=== PATIENT | female | born 1960 | race Caucasian/White ===

== ENCOUNTER 2020-12-06 11:25 | Day surgery (SDC) | payer OTHER ==
[2020-12-06] MEDS ORDERED: Decadron 4 MG INJ IV ONE (11:26)
[2020-12-06] MEDS ORDERED: LIDOCAINE HCL 2% 100 MG/5 ML IJ ONE (11:26)
[2020-12-06] MEDS ORDERED: DIPRIVAN 200 MG/20 ML IV ONE (12:38)
[2020-12-06] MEDS ORDERED: Ketamine HCl 50 MG/ML ONE (12:38)
[2020-12-06] MEDS ORDERED: Lactated Ringers 1,000 ML IV ONE (14:36)
--- NOTE | 2020-12-06 15:20 | XRAY ---
Indication: Left C3-C5 MBB. Intraoperative fluoroscopy provided for 16 seconds. 2 digital spot images submitted for interpretation demonstrate posterior needle tips projecting over the expected left C3-C5 nerve roots. Correlate with intraoperative findings/report.
--- NOTE | 2020-12-06 16:22 | XRAY ---
16 seconds of fluoroscopy was used in surgery for a left C3-C4 and C4-C5 MBB.
== END 2020-12-06 13:56 | disposition home or self-care (01) ==
LOC: SDC-PAIN 11:25
PROVIDERS: ATTEND Psychiatry & Neurology Pain Medicine
DX: M47.812 Spondylosis without myelopathy or radiculopathy, cervical region (principal); M79.7 Fibromyalgia; F41.8 Other specified anxiety disorders; Z79.899 Other long term (current) drug therapy
CPT/HCPCS: 64490; 64491; 72020; 77002; J1100; J2704

== ENCOUNTER 2021-01-24 11:57 | Day surgery (SDC) | payer OTHER ==
[2021-01-24] MEDS ORDERED: Decadron 4 MG INJ IV ONE (11:58)
[2021-01-24] MEDS ORDERED: LIDOCAINE HCL 2% 100 MG/5 ML IJ ONE (11:58)
[2021-01-24] MEDS ORDERED: DIPRIVAN 200 MG/20 ML IV ONE (12:48)
--- NOTE | 2021-01-24 14:12 | XRAY ---
Indication: Right C3-C5 MBB. Intraoperative fluoroscopy provided for 26 seconds. 2 digital spot images submitted for interpretation demonstrates posterior needle tips projecting over the expected right C3-C5 nerve roots. Correlate with intraoperative findings/report.
--- NOTE | 2021-01-24 14:25 | XRAY ---
26 seconds of fluoroscopy was used in surgery for a right C3-C4, C4-C5 MBB.
[2021-01-24] MEDS ORDERED: Lactated Ringers 1,000 ML IV ONE (15:29)
== END 2021-01-24 13:15 | disposition home or self-care (01) ==
LOC: SDC-PAIN 11:57
PROVIDERS: ATTEND Psychiatry & Neurology Pain Medicine
DX: M47.812 Spondylosis without myelopathy or radiculopathy, cervical region (principal); M79.7 Fibromyalgia; Z79.899 Other long term (current) drug therapy
CPT/HCPCS: 64490; 64491; 72040; 77002; J1100; J2704

== ENCOUNTER 2021-03-14 11:05 | Day surgery (SDC) | payer OTHER ==
[2021-03-14] MEDS ORDERED: Decadron 4 MG INJ IV ONE (11:06)
[2021-03-14] MEDS ORDERED: BUPIVACAINE 0.5% VIAL IJ ONE (11:06)
[2021-03-14] MEDS ORDERED: DIPRIVAN 200 MG/20 ML IV ONE (12:48)
--- NOTE | 2021-03-14 13:31 | XRAY ---
Indication: Left C3-C5 MBB. Intraoperative fluoroscopy provided for 21 seconds. 2 digital spot image submitted for interpretation demonstrates posterior needle tips projecting over the expected left C3-C5 nerve roots. Correlate with intraoperative findings/report.
--- NOTE | 2021-03-14 13:34 | XRAY ---
21 seconds fluoroscopy time in surgery for left C3-C5 MBB.
[2021-03-14] MEDS ORDERED: Lactated Ringers 1,000 ML IV ONE (15:32)
== END 2021-03-14 13:19 | disposition home or self-care (01) ==
LOC: SDC-PAIN 11:05
PROVIDERS: ATTEND Psychiatry & Neurology Pain Medicine
DX: M47.812 Spondylosis without myelopathy or radiculopathy, cervical region (principal); M79.7 Fibromyalgia; F32.9 Major depressive disorder, single episode, unspecified; Z79.899 Other long term (current) drug therapy
CPT/HCPCS: 64490; 64491; 72040; 77002; J1100; J2704

== ENCOUNTER 2021-07-12 06:05 | Day surgery (SDC) | payer OTHER ==
[2021-07-12] MEDS ORDERED: Lactated Ringers 1,000 ML IV ONE (06:37)
[2021-07-12] MEDS ORDERED: Lactated Ringers 1,000 ML IV SCH (07:00)
[2021-07-12] MEDS ORDERED: Versed 2 MG/2 ML Injection ONE (07:48)
[2021-07-12] MEDS ORDERED: DIPRIVAN 200 MG/20 ML IV ONE (07:49)
--- NOTE | 2021-07-12 08:37 | PCM.DCORD ---
- Discharge Disposition: Home, Self-Care Condition: Stable Prescriptions: New PANTOPRAZOLE 40 mg Tablet [Protonix 40MG Tablet] 40 mg PO QPM #30 tab Continue Montelukast Sodium 10 mg [Singulair 10 MG] 10 mg PO DAILY Rosuvastatin Calcium 1 tab PO DAILY Pregabalin [Lyrica 150Mg] 1 tab PO TID Duloxetine HCl [Cymbalta] 1 tab PO DAILY Diltiazem HCl 30 mg [Cardizem 30 MG] 1 tab PO BID Follow up with: DOUGIE MONAHAN [Primary Care Provider] -
--- NOTE | 2021-07-12 08:53 | OP ---
SURGERY DATE/TIME: 07/12/2021 0753 PREOPERATIVE DIAGNOSES: Abdominal pain. POSTOPERATIVE DIAGNOSES: 1) Mild gastritis. 2) Normal colon. PROCEDURES: 1) EGD. 2) Colonoscopy. SURGEON: Jamil Horowitz M.D. ANESTHESIA: MAC by Michael Durán CRNA. ESTIMATED BLOOD LOSS: Minimal. SPECIMENS: Two cold forceps biopsies taken from the gastric antrum. DESCRIPTION OF PROCEDURE: After informed written consent was obtained, the patient was taken to the endoscopy suite. She was placed in the left lateral decubitus position and a bite block inserted. After anesthesia was titrated to desired level of consciousness, the endoscope was inserted in the posterior oropharynx and under direct visualization the esophagus was traversed. The esophageal mucosa was within normal limits. There were no appreciable abnormalities in the gastroesophageal junction. Upon entering into the stomach, there was normal rugated gastric mucosa free of lesions or defects. The gastric antrum had mild to moderate gastritis-type changes. No focal ulcerations or bleeding. The pylorus was traversed and the first and second portions of the duodenum appeared within normal limits. Two cold forceps biopsies were taken from the gastric antrum and sent for Helicobacter pylori testing with minimal blood loss. Again, the remainder of the mucosal structures were within normal limits upon withdrawal of the scope. The scope was removed and the scopes were switched. Digital rectal exam showed normal sphincter tone and no internal lesions. The scope was inserted in the rectum and sequentially the entire colonic mucosa was traversed. The level of the cecum was reached and verified with direct visualization of the ileocecal valve. Upon withdrawal careful mucosal inspection revealed no abnormalities. Prior to withdrawal retroflexion was performed and showed no internal lesions. The scope was removed and the patient was transferred to the recovery room in good condition. She will follow up in a week for pathology report. I have also prescribed Protonix 40 mg in the evening in the interim.
[2021-07-12 08:58] VITALS: O2SAT 98
[2021-07-12 09:02] VITALS: BP 126/72; PULSE 78
== END 2021-07-12 09:15 | disposition home or self-care (01) ==
LOC: SDC 06:05
PROVIDERS: ATTEND Family Medicine
DX: K29.70 Gastritis, unspecified, without bleeding (principal); R10.9 Unspecified abdominal pain; I10 Essential (primary) hypertension
CPT/HCPCS: J2250; J2704

== ENCOUNTER 2022-01-09 11:52 | Day surgery (SDC) | payer OTHER ==
[2022-01-09] MEDS ORDERED: Decadron 4 MG INJ IV ONE (11:53)
[2022-01-09] MEDS ORDERED: Xylocaine 1% Vial 30 ML PF IJ ONE (11:53)
[2022-01-09] MEDS ORDERED: BUPIVACAINE 0.5% VIAL IJ ONE (11:53)
[2022-01-09] MEDS ORDERED: Lactated Ringers 1,000 ML IV ONE (14:05)
[2022-01-09] MEDS ORDERED: DIPRIVAN 200 MG/20 ML IV ONE (14:39)
--- NOTE | 2022-01-09 15:15 | XRAY ---
Indication: Left C3-C5 RFA. Intraoperative fluoroscopy provided for 32 seconds. 3 digital spot images submitted for interpretation demonstrates posterior needle tips projecting over the expected left C3-C5 nerve roots. Correlate with intraoperative findings/report.
--- NOTE | 2022-01-09 16:46 | XRAY ---
32 seconds of fluoroscopy was used in surgery for a left C3-C5 RFA.
== END 2022-01-09 15:15 | disposition home or self-care (01) ==
LOC: SDC-PAIN 11:52
PROVIDERS: ATTEND Psychiatry & Neurology Pain Medicine
DX: M47.812 Spondylosis without myelopathy or radiculopathy, cervical region (principal); Z79.899 Other long term (current) drug therapy
CPT/HCPCS: 01939; 64633; 64634; 72040; 77002; J1100; J2001; J2704

== ENCOUNTER 2023-10-16 12:32 | Emergency (ER) | payer OTHER ==
[2023-10-16] MEDS ORDERED: Sterile H2O 10 ml IJ ONE (13:04)
[2023-10-16] MEDS ORDERED: NORCO 5/325 MG ONE ×2 (13:04→13:57)
[2023-10-16] MEDS ORDERED: solu-MEDROL ONE (13:05)
--- NOTE | 2023-10-16 13:08 | ERPHSYRPT ---
- History of Present Illness Time Seen by Provider: 10/16/23 12:37 Source: patient Exam Limitations: no limitations Patient Subjective Stated Complaint: PT states "I have fibromyalgia and I am in alot of pain. I have been working more than usual and I think that is what is causeing it all" Triage Nursing Assessment: Pt presented alert and oriented X 3, skin pwd.d Pt ambulates with a slow gait, able to speak in clear full sentences. Physician History: 63-year-old female with history of fibromyalgia, palpitations, chronic pain presented in the ER with complains of aches and pains all over for the last 3 days. 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 Patient reports she is having pain in her upper back, knees, arms and has tender points. Patient reports having similar symptoms in the past with fibromyalgia flareup and usually gets better after having a steroid shot. Patient reports she has been taking Lyrica but does not seem helping a lot. Denies any fever or chills. Denies any sick contact. No cough, chest pain, abdominal pain nausea vomiting. Patient reports "I am not sick but have pain like my previous episodes". Allergies/Adverse Reactions: No Known Drug Allergies Allergy (Verified 07/12/21 06:19) Home Medications: Diltiazem HCl 30 mg [Cardizem 30 MG] 1 tab PO BID 07/11/21 [History] Duloxetine HCl [Cymbalta] 1 tab PO DAILY 07/11/21 [History] Montelukast Sodium 10 mg [Singulair 10 MG] 10 mg PO DAILY 07/11/21 [History] Pregabalin [Lyrica 150Mg] 1 tab PO TID 07/11/21 [History] Rosuvastatin Calcium 1 tab PO DAILY 07/11/21 [History] Hx Tetanus, Diphtheria Vaccination/Date Given: Yes Hx Influenza Vaccination/Date Given: Yes Hx Pneumococcal Vaccination/Date Given: No Immunizations Up to Date: Yes Travel Risk - International Travel Have you traveled outside of the country in past 3 weeks: No - Coronavirus Screening Are you exhibiting any of the following symptoms?: No Close contact with a COVID-19 positive Pt in past 14-21 Days: No - Vaccine Status Have you recieved a Covid-19 vaccination: No - Review of Systems Constitutional: No Symptoms Eyes: No Symptoms Ears, Nose, & Throat: No Symptoms Respiratory: No Symptoms Cardiac: No Symptoms Abdominal/Gastrointestinal: No Symptoms Genitourinary Symptoms: No Symptoms Musculoskeletal: Myalgias Skin: No Symptoms Neurological: No Symptoms Hematologic/Lymphatic: No Symptoms Immunological/Allergic: No Symptoms - Past Medical History Pertinent Past Medical History: Yes Neurological History: No Pertinent History ENT History: No Pertinent History Cardiac History: High Cholesterol, Other Respiratory History: No Pertinent History Endocrine Medical History: No Pertinent History Musculoskeletal History: Other GI Medical History: No Pertinent History History: Other Psycho-Social History: Depression Female Reproductive Disorders: No Pertinent History Other Medical History: Small vessel disease. Multiple UTI Hx of fibromyalgia. - Past Surgical History Past Surgical History: Yes Neuro Surgical History: No Pertinent History Cardiac: Cardiac Catheterization Respiratory: No Pertinent History Gastrointestinal: No Pertinent History Genitourinary: No Pertinent History Musculoskeletal: Other Female Surgical History: No Pertinent History Other Surgical History: Steroid injections in upper back - Social History Smoking Status: Never smoker Exposure to second hand smoke: Yes Drug Use: none Patient Lives Alone: No - Nursing Vital Signs Nursing Vital Signs: Initial Vital Signs Temperature 97.8 F 10/16/23 12:37 Pulse Rate 70 10/16/23 12:37 Respiratory Rate 20 10/16/23 12:37 Blood Pressure 135/67 10/16/23 12:37 O2 Sat by Pulse Oximetry 98 10/16/23 12:37 Pain Scale Pain Intensity 5 - Physical Exam General Appearance: no apparent distress, alert Eye Exam: PERRL/EOMI Ears, Nose, Throat Exam: normal ENT inspection, TMs normal, pharynx normal, moist mucous membranes Neck Exam: normal inspection, non-tender, supple, full range of motion, No meningismus Respiratory Exam: normal breath sounds, lungs clear Cardiovascular Exam: regular rate/rhythm, normal heart sounds Gastrointestinal/Abdomen Exam: soft, normal bowel sounds, No tenderness Back Exam: normal inspection, normal range of motion Extremity Exam: normal inspection, normal range of motion, pelvis stable Neurologic Exam: alert, oriented x 3, cooperative, rn licensed practical II-XII nml as tested Skin Exam: normal color SpO2 Interpretation: normal SpO2: 98 O2 Delivery: Room Air Ordered Tests: Medication Summary Discontinued Medications Generic Name Dose Route Start Last Admin Trade Name Freq PRN Reason Stop Dose Admin Hydrocodone Bitart/Acetaminophen 1 tab 10/16/23 13:00 10/16/23 13:09 Hydrocodone/Apap 5/325 1 Tab Tablet PO 10/16/23 13:01 1 tab STAT ONE Administration Hydrocodone Bitart/Acetaminophen Confirm 10/16/23 13:04 Hydrocodone/Apap 5/325 1 Tab Tablet Administered 10/16/23 13:05 Dose 1 tab .ROUTE .STK-MED ONE Hydrocodone Bitart/Acetaminophen 1 tab 10/16/23 13:53 10/16/23 13:58 Hydrocodone/Apap 5/325 1 Tab Tablet PO 10/16/23 13:54 1 tab STAT ONE Administration Hydrocodone Bitart/Acetaminophen Confirm 10/16/23 13:57 Hydrocodone/Apap 5/325 1 Tab Tablet Administered 10/16/23 13:58 Dose 1 tab .ROUTE .STK-MED ONE Methylprednisolone Sodium 0 mg 10/16/23 13:00 10/16/23 13:09 Succinate 125 mg/ Sterile IM 10/16/23 13:01 125 mg Water 2 ml STAT ONE Administration Methylprednisolone Sodium Succinate Confirm 10/16/23 13:05 Methylprednis Sod Succ 125 Mg/2 Ml Vial Administered 10/16/23 13:06 Dose 125 mg .ROUTE .STK-MED ONE Sterile Water Confirm 10/16/23 13:04 Water For Injection,Sterile 10 Ml Vial Administered 10/16/23 13:05 Dose 10 ml IJ .STK-MED ONE - Progress Progress: improved Progress Note: 10/16/23 14:38 63-year-old with history of fibromyalgia presented to the ER for steroid shot. Patient reports she is having increasing aches and pains all over at different tender points which she has. No difficulty breathing, no nausea vomiting or abdominal pain. Denies any chest pain. No known sick contact. Patient does not want any workup done but a steroid shot and some symptomatic relief for her pain. I have given her a shot of Solu-Medrol and [place] for symptomatic relief. I would continue with low-dose prednisone to go home and recommended continue with her Lyrica and Cymbalta. Discussed signs symptoms of worsening needing return to ER which patient seems understanding. Stable for discharge. Counseled pt/family regarding: diagnosis, need for follow-up Medical Desision Making - Risk of complications The pt has a mod risk of morbidity or mortality based on: Need for prescription drug management - Departure Departure Disposition: Home Clinical Impression: Fibromyalgia syndrome Condition: Stable Critical Care Time: No Referrals: PETER MAGDALENO DO [Primary Care Provider] - Follow up with PCP 1 day Instructions: Chronic Pain (DC) Additional Instructions: Continue with your current medications. Take Tylenol as needed. Drink plenty of fluids keep yourself well-hydrated. Follow-up with your primary care for reevaluation. Return to ER for worsening pain or if having fever chills, nausea vomiting, chest pain, abdominal pain etc. Prescriptions: Prednisone 20 mg [Deltasone 20 mg] 60 mg PO DAILY 5 Days #15 tablet
[2023-10-16] MEDS: NORCO 5/325 MG PO ONE ×2 (13:09→13:58)
[2023-10-16] MEDS: solu-MEDROL 125 MG, Sterile H2O 10 ml 2 ML IM ONE (13:09)
[2023-10-16 13:39] VITALS: RESP 18
[2023-10-16 14:09] VITALS: BP 120/58; PULSE 67; TEMP 97.5
[2023-10-16 14:18] VITALS: O2SAT 98
== END 2023-10-16 14:28 | disposition home or self-care (01) ==
LOC: ED 12:32
DX: M79.7 Fibromyalgia (principal); E78.5 Hyperlipidemia, unspecified; Z79.52 Long term (current) use of systemic steroids; Z79.899 Other long term (current) drug therapy; Z28.310 Unvaccinated for COVID-19
CPT/HCPCS: 96372; 99283; J2930; A9270-GY